=== PATIENT | female | born 1935 | race Caucasian/White ===

== ENCOUNTER 2018-05-23 20:26 | Inpatient (IN) ==
[2018-05-23] MEDS ORDERED: 0.9 % Sodium Chloride 500 ML IVC ONE (21:11)
[2018-05-23 21:40] LABS: Basophils # 0.1 K/mcL (0.0-0.2); Basophils % 0.3 %; Eosinophils # 0.1 K/mcL (0.0-0.6); Eosinophils % 0.3 %; Hemoglobin 10.7 g/dL (11.5-15.4); Immature Granulocytes % 13.4 % (0-4); Lymphocytes # 1.1 K/mcL (0.6-4.6); Lymphocytes % 3.8 %; Mean Corpuscular HGB Conc 31.5 g/dL (31.6-35.5); Mean Corpuscular Hemoglobin 26.9 pg (28.0-33.3); Mean Corpuscular Volume 85.4 fL (83.0-100.0); Mean Platelet Volume 9.8 fL (9.4-12.4); Monocytes # 0.9 K/mcL (0.0-1.3); Monocytes % 3.1 %; Neutrophils # 23.6 K/mcL (1.6-8.9); Platelet Count 215 K/mcL (140-400); Red Blood Count 3.98 M/mcL (3.82-4.97); Red Cell Distribution Width 17.6 % (11.5-14.5); Segmented Neutrophils % 79.1 %
[2018-05-23 21:47] LABS: Bilirubin,Urine Negative (Negative); Blood,Urine Large (Negative); Clarity,Urine Clear (Clear); Color,Urine Yellow (Yellow); Glucose,Urine (UA) Normal (Normal); Ketones,Urine Negative (Negative); Leukocyte Esterase,Urine Small (Negative); Nitrite,Urine Positive (Negative); PH,Urine 5.5 pH Units (5.0-8.0); Protein,Urine 100 mg/dL (Neg-Trace); Urobilinogen,Urine Normal (Normal)
[2018-05-23 21:54] LABS: WBC,Urine 50-100 per hpf (0-3)
[2018-05-23 22:23] LABS: Albumin 2.7 g/dL (3.5-5.7); Albumin/Globulin Ratio 0.8 (1.1-2.2); Bilirubin,Total 0.6 mg/dL (0.3-1.0); Calcium 9.4 mg/dL (8.6-10.3); Globulin 3.4 g/dL (2.4-3.5); Potassium 4.3 mEq/L (3.5-5.1); Total Protein 6.1 g/dL (6.4-8.9); Troponin I 0.07 ng/mL (< 0.04)
[2018-05-23 22:25] LABS: Platelet Estimate Normal (Normal)
[2018-05-23 22:26] LABS: Hypersegmented Neutrophils Present (Not Present)
--- NOTE | 2018-05-23 22:41 | Emergency Department Note ---
Disposition Clinical Impression: UTI (urinary tract infection), Dehydration, Decubitus ulcer, Leukocytosis Disposition: Admitted As Inpatient Condition: Fair General Adult HPI - General Chief complaint: ED General Medical Stated complaint: High WBC, Sacral decubitus, AMS, Time Seen by Provider: 05/23/18 20:26 Source: patient, EMS, other Limitations: altered mental status, physical limitation Nursing Notes Reviewed: Yes Vital Signs Reviewed: Yes - History of Present Illness HPI Narrative: Patient presents emerge from extended care facility with an elevated white blood cell count of a urinary tract infection and a large sacral decubitus ulcer. She is gradually getting worse so doctor Cash had her sent to the emergency department for evaluation. The patient is without complaint. Onset (ago): unknown (Long-standing) Pain Scale: 0 Consistency: constant Improves with: nothing Worsens with: nothing Associated symptoms: Reports: denies other symptoms - Related Data Home Medications Medication Instructions Recorded Confirmed Cholecalciferol (Vitamin D3) 10,000 unit PO QWEEK 04/13/15 05/24/18 [Vitamin D3] Clopidogrel [Plavix] 75 mg PO DAILY 04/13/15 05/23/18 Isosorbide MONOnitrate (24 HR) 30 mg PO DAILY 04/13/15 05/23/18 [Imdur] Levothyroxine Sodium [Tirosint] 25 mcg PO DAILY 04/13/15 05/23/18 Potassium Chloride [Klor-Con 10 meq PO BID 04/13/15 05/23/18 Sprinkle] Donepezil HCl [Aricept] 10 mg PO DAILY 05/23/16 05/23/18 Loratadine [Allergy Relief] 10 mg PO DAILY PRN 05/23/16 05/23/18 Nitroglycerin [Nitrostat] 0.4 mg SL AD PRN 05/23/16 05/23/18 Zinc Oxide [Skin Protectant] 1 appl TP 8XD 05/23/16 05/24/18 FA/Mv,Ca,Iron/Pollen/Herb#101 1 each PO 2XW 08/27/16 05/23/18 [Maximum Daily Green Tablet] Famotidine [Pepcid] 10 mg PO DAILY 08/27/16 05/23/18 Acetaminophen [Tylenol] 650 mg PO Q6HR PRN 05/24/18 05/24/18 Ascorbic Acid [Vitamin C] 500 mg PO DAILY 05/24/18 05/24/18 Bisacodyl [Dulcolax] 10 mg RC DAILY PRN 05/24/18 05/24/18 Cyanocobalamin (B-12) [Vitamin B12] 1,000 mcg PO DAILY 05/24/18 05/24/18 DULoxetine [Cymbalta] 20 mg PO DAILY 05/24/18 05/24/18 Ferrous Sulfate [Iron] 325 mg PO DAILY 05/24/18 05/24/18 Magnesium Hydroxide [Milk of 400 mg PO DAILY PRN 05/24/18 05/24/18 Magnesia] Melatonin 6 mg PO HS 05/24/18 05/24/18 OxyCODONE/APAP 5/325 [Percocet 0.5 each PO Q4HR PRN 05/24/18 05/24/18 5/325 MG] Oxybutynin Chloride [Ditropan Xl] 5 mg PO BID 05/24/18 05/24/18 Phenazopyridine [Pyridium] 100 mg PO TID PRN 05/24/18 05/24/18 Rosuvastatin Calcium [Crestor] 5 mg PO HS 05/24/18 05/24/18 Sennosides/Docusate Sodium [Colace 1 each PO BID 05/24/18 05/24/18 2-in-1 Tablet] Simethicone [Gas-X] 80 mg PO TID PRN 05/24/18 05/24/18 Previous Rx's Medication Instructions Recorded Bumetanide [Bumex] 1 mg PO DAILY #7 tablet 10/17/17 Allergies Allergy/AdvReac Type Severity Reaction Status Date / Time cephalexin [From Keflex] Allergy Rash Verified 05/23/18 23:39 Penicillins [PCN] Allergy Rash Verified 05/23/18 23:39 All systems ED: reviewed and negative except as stated. Review of Systems: As Per HPI Constitutional: Denies: fever, chills, weakness, weight change Eyes: Denies: eye pain, eye discharge, vision change ENT ED: Reports: as per HPI Cardiovascular: Denies: chest pain, palpitations, dyspnea on exertion, edema, syncope Respiratory: Denies: cough, dyspnea, wheezes, hemoptysis, stridor Gastrointestinal: Denies: abdominal pain, nausea, vomiting, diarrhea, constipation, hematemesis, melena, hematochezia Genitourinary: Denies: dysuria, frequency, hematuria, discharge Musculoskeletal: Reports: as per HPI Integumentary: Reports: as per HPI Neurological: Denies: headache, weakness, numbness, paresthesias, confusion, abnormal gait, vertigo Psychiatric: Denies: anxiety, depression, suicidal thoughts, homicidal thoughts, auditory hallucinations, visual hallucinations Endocrine: Denies: fatigue Hematological/Lymphatic: Denies: easy bleeding, easy bruising Allergic/Immunologic: Denies: facial swelling, urticaria Past Medical History - Past Medical History Attestation: Yes The following information was validated with the patient. Source: patient, nursing notes reviewed Medical history: Reports: arthritis, CHF, COPD, coronary artery disease, GERD, hyperlipidemia, hypertension, myocardial infarction, osteoporosis, thyroid disease Surgical history: Reports: cholecystectomy, other Psychiatric history: Reports: anxiety, other DECONTAMINATION TECHNICIAN history: Reports: no DECONTAMINATION TECHNICIAN history - Social History Smoking Status: Never smoker Smokeless Tobacco Status: No Alcohol use: Reports: none Drug use: Reports: none Physical Exam - General Limitations: altered mental status, physical limitation General appearance: alert, in no apparent distress - Head Head exam: atraumatic, normocephalic, normal inspection - Eye Eye exam: Present: normal appearance, PERRL, EOMI - ENT ENT exam: normal exam, normal oropharynx, mucous membranes moist - Neck Neck exam: Present: normal inspection, full ROM, trachea midline - Chest Chest inspection: Present: normal inspection, symmetric chest wall rise - Respiratory Respiratory exam: Present: normal lung sounds bilaterally - Cardiovascular Cardiovascular exam: Present: regular rate, normal rhythm, normal heart sounds - Abdominal Exam Abdominal exam: Present: soft, Non-Tender - Rectal Exam Country Director present during exam: Yes Rectal exam: Present: other (Large stage IV sacral decubitus noted) - Extremities Exam Extremities exam: Present: normal inspection, full ROM. Absent: tenderness, pedal edema - Back Exam Back exam: Present: normal inspection, full ROM. Absent: tenderness - Neurological Exam Neurological exam: Present: alert - Psychiatric Psychiatric exam: Present: normal affect, normal mood - Skin Skin exam: Present: warm, dry, intact Course Vital Signs Temperature 97.9 F 05/23/18 20:30 Pulse Rate 90 05/23/18 20:30 Respiratory Rate 16 05/23/18 20:30 Blood Pressure 95/52 05/23/18 20:30 O2 Sat by Pulse Oximetry 95 05/23/18 20:30 Temperature 97.6 F 05/24/18 02:16 Pulse Rate 68 05/24/18 02:16 Respiratory Rate 22 05/24/18 01:30 Blood Pressure 104/68 05/24/18 02:16 O2 Sat by Pulse Oximetry 94 05/24/18 02:16 Oxygen Delivery Oxygen Delivery Room Air Medical Decision Making - MDM Narrative Medical decision making narrative: I reviewed the patient's medication list I reviewed the patient's laboratory studies and findings with Dr. Castrejon who is graciously agreed to accept the patient has admission - Lab Data Lab results reviewed: Yes I reviewed the patient's lab results. Result diagrams: 05/23/18 21:31 05/23/18 21:31 Lab Results 05/23/18 05/23/18 05/23/18 Range/Units 21:31 21:31 21:31 WBC 29.8 H (4.3-11.1) K/mcL RBC 3.98 (3.82-4.97) M/mcL Hgb 10.7 L D (11.5-15.4) g/dL Hct 34.0 L (35.3-44.9) % MCV 85.4 (83.0-100.0) fL MCH 26.9 L (28.0-33.3) pg MCHC 31.5 L (31.6-35.5) g/dL RDW 17.6 H (11.5-14.5) % Plt Count 215 (140-400) K/mcL MPV 9.8 (9.4-12.4) fL Immature Gran % 13.4 H (0-4) % Seg Neutrophils % 79.1 % Lymphocytes % 3.8 % Monocytes % 3.1 % Eosinophils % 0.3 % Basophils % 0.3 % Neutrophils # 23.6 H (1.6-8.9) K/mcL Lymphocytes # 1.1 (0.6-4.6) K/mcL Monocytes # 0.9 (0.0-1.3) K/mcL Eosinophils # 0.1 (0.0-0.6) K/mcL Basophils # 0.1 (0.0-0.2) K/mcL Hypersegmented Neuts Present A (Not Present) Platelet Estimate Normal (Normal) Sodium 137 (136-145) mEq/L Potassium 4.3 (3.5-5.1) mEq/L Chloride 100 (98-107) mEq/L Carbon Dioxide 25 (23-29) mEq/L BUN 90 H (8-23) mg/dL Creatinine 1.52 H (0.60-1.20) mg/dL Est GFR ( Amer) 40 L (> 60) Est GFR (Non-Af Amer) 33 L (> 60) BUN/Creatinine Ratio 59 H (6-26) Glucose 123 H (70-105) mg/dL Calculated Osmolality 313 H (280-300) Lactic Acid (0.5-2.2) mmol/L Calcium 9.4 (8.6-10.3) mg/dL Total Bilirubin 0.6 (0.3-1.0) mg/dL AST 32 (13-39) Units/L ALT 19 (7-52) Units/L Alkaline Phosphatase 78 (34-104) Units/L Troponin I 0.07 H* (< 0.04) ng/mL Serum Total Protein 6.1 L (6.4-8.9) g/dL Albumin 2.7 L (3.5-5.7) g/dL Globulin 3.4 (2.4-3.5) g/dL Albumin/Globulin Ratio 0.8 L (1.1-2.2) Urine Color Yellow (Yellow) Urine Clarity Clear (Clear) Urine pH 5.5 (5.0-8.0) pH Units Ur Specific [place] 1.010 (1.010-1.025) Urine Protein 100 H (Neg-Trace) mg/dL Urine Glucose (UA) Normal (Normal) mg/dL Urine Ketones Negative (Negative) mg/dL Urine Blood Large H (Negative) Urine Nitrite Positive A (Negative) Urine Bilirubin Negative (Negative) Urine Urobilinogen Normal (Normal) mg/dL Ur Leukocyte Esterase Small H (Negative) Urine Microscopic RBC 5-15 H (0-3) per hpf Urine Microscopic WBC 50-100 H (0-3) per hpf Ur Culture Indicated? YES A (NO) 05/23/18 05/23/18 Range/Units 21:31 23:53 WBC (4.3-11.1) K/mcL RBC (3.82-4.97) M/mcL Hgb (11.5-15.4) g/dL Hct (35.3-44.9) % MCV (83.0-100.0) fL MCH (28.0-33.3) pg MCHC (31.6-35.5) g/dL RDW (11.5-14.5) % Plt Count (140-400) K/mcL MPV (9.4-12.4) fL Immature Gran % (0-4) % Seg Neutrophils % % Lymphocytes % % Monocytes % % Eosinophils % % Basophils % % Neutrophils # (1.6-8.9) K/mcL Lymphocytes # (0.6-4.6) K/mcL Monocytes # (0.0-1.3) K/mcL Eosinophils # (0.0-0.6) K/mcL Basophils # (0.0-0.2) K/mcL Hypersegmented Neuts (Not Present) Platelet Estimate (Normal) Sodium (136-145) mEq/L Potassium (3.5-5.1) mEq/L Chloride (98-107) mEq/L Carbon Dioxide (23-29) mEq/L BUN (8-23) mg/dL Creatinine (0.60-1.20) mg/dL Est GFR ( Amer) (> 60) Est GFR (Non-Af Amer) (> 60) BUN/Creatinine Ratio (6-26) Glucose (70-105) mg/dL Calculated Osmolality (280-300) Lactic Acid 2.4 H (0.5-2.2) mmol/L Calcium (8.6-10.3) mg/dL Total Bilirubin (0.3-1.0) mg/dL AST (13-39) Units/L ALT (7-52) Units/L Alkaline Phosphatase (34-104) Units/L Troponin I 0.07 H* (< 0.04) ng/mL Serum Total Protein (6.4-8.9) g/dL Albumin (3.5-5.7) g/dL Globulin (2.4-3.5) g/dL Albumin/Globulin Ratio (1.1-2.2) Urine Color (Yellow) Urine Clarity (Clear) Urine pH (5.0-8.0) pH Units Ur Specific [place] (1.010-1.025) Urine Protein (Neg-Trace) mg/dL Urine Glucose (UA) (Normal) mg/dL Urine Ketones (Negative) mg/dL Urine Blood (Negative) Urine Nitrite (Negative) Urine Bilirubin (Negative) Urine Urobilinogen (Normal) mg/dL Ur Leukocyte Esterase (Negative) Urine Microscopic RBC (0-3) per hpf Urine Microscopic WBC (0-3) per hpf Ur Culture Indicated? (NO) - Radiology Data Radiology results reviewed: Yes I reviewed the patient's radiology results. - EKG Data EKG #1 EKG attestation: Yes I reviewed and interpreted this EKG. EKG results narrative: EKG shows a normal sinus rhythm with rate of 86 bpm VT interval is 161 ms. Scientology 88 ms. QT and QTC intervals are 355 and 425 ms respectively. R axis of -6 degrees by my read
[2018-05-23] MEDS ORDERED: *HR* OxyCODONE/APAP 5/325 TABLET PO ONE (23:27)
[2018-05-24] MEDS ORDERED: Levofloxacin 500 MG/100 ML 500 MG/100 ML BAG IVPB ONE (01:10)
[2018-05-24] MEDS ORDERED: 0.9 % Sodium Chloride 1,000 ML IVC SCH (01:15)
[2018-05-24] MEDS ORDERED: Naloxone 0.4 MG/ML INJ IVP PRN (02:28)
[2018-05-24] MEDS ORDERED: Acetaminophen 325 MG TABLET PO PRN (02:28)
[2018-05-24] MEDS ORDERED: MOM Conc 10 ML UD.LIQ PO PRN (02:28)
[2018-05-24] MEDS ORDERED: Bisacodyl 10 MG RECTAL SUPPOSITORY RC PRN (02:28)
[2018-05-24] MEDS ORDERED: Nitroglycerin 0.4 MG TAB.SUBL SL PRN (02:28)
[2018-05-24] MEDS ORDERED: Loratadine 10 MG TABLET PO PRN (02:28)
[2018-05-24] MEDS ORDERED: Simethicone 80 MG TAB.CHEW PO PRN (02:28)
[2018-05-24] MEDS: 0.9 % Sodium Chloride 1,000 ML IVC SCH (03:56)
[2018-05-24] MEDS: Desitin (Zinc Oxide) 56 GM TUBE TP SCH ×8 (06:05→20:54)
[2018-05-24] MEDS: Levothyroxine 25 MCG TABLET PO SCH (06:05)
[2018-05-24] MEDS: *HR* OxyCODONE/APAP 5/325 TABLET PO PRN ×2 (06:41→17:19)
[2018-05-24] MEDS ORDERED: Bumetanide 1 MG TABLET PO SCH (09:00)
[2018-05-24] MEDS ORDERED: Multivit/Ca/Min/Fe/FA 1 TAB TABLET PO SCH (09:00)
[2018-05-24] MEDS ORDERED: Cholecalciferol (D-3) 1,000 UNIT TABLET PO SCH (09:00)
[2018-05-24] MEDS: Sennosides/Docusate Sodium TABLET PO SCH ×2 (09:24→20:55)
[2018-05-24] MEDS: Famotidine 20 MG TABLET PO SCH (09:24)
[2018-05-24] MEDS: Cyanocobalamin (B-12) 1,000 MCG TABLET PO SCH (09:25)
[2018-05-24] MEDS: Isosorbide MONOnitrate (24 HR) 30 MG TAB.ER.24H PO SCH (09:25)
[2018-05-24] MEDS: Ascorbic Acid 500 MG TABLET PO SCH (09:25)
[2018-05-24 11:55] LABS: Hematocrit 33.9 % (35.3-44.9); Hemoglobin 10.6 g/dL (11.5-15.4); Mean Corpuscular HGB Conc 31.3 g/dL (31.6-35.5); Mean Corpuscular Hemoglobin 26.4 pg (28.0-33.3); Mean Corpuscular Volume 84.5 fL (83.0-100.0); Mean Platelet Volume 9.7 fL (9.4-12.4); Platelet Count 183 K/mcL (140-400); Red Blood Count 4.01 M/mcL (3.82-4.97); Red Cell Distribution Width 17.5 % (11.5-14.5)
[2018-05-24 13:10] LABS: Hypersegmented Neutrophils Present (Not Present); Lymphocytes # 0.6 K/mcL (0.6-4.6); Monocytes # 0.6 K/mcL (0.0-1.3); Neutrophils # 28.3 K/mcL (1.6-8.9); Platelet Estimate Normal (Normal); Toxic Vacuolation Present (Not Present)
--- NOTE | 2018-05-24 15:18 | Internal Med History&Physical ---
Date of Encounter: 05/24/18 Time of Encounter: 14:45 Assessment and Plan (1) UTI (urinary tract infection) Current visit: Yes Status: Acute IV Levaquin has been ordered empirically in emergency room. Urine culture has been sent. Lactobacillus will be added. Qualifiers: Urinary tract infection type: site unspecified Hematuria presence: with hematuria Qualified Code(s): N39.0 - Urinary tract infection, site not specified; R31.9 - Hematuria, unspecified (2) Leukocytosis Current visit: Yes Status: Acute As above Qualifiers: Leukocytosis type: unspecified Qualified Code(s): D72.829 - Elevated white blood cell count, unspecified (3) Acute kidney injury Current visit: Yes Status: Acute IV fluids have been ordered. Bumex will be discontinued. Renal indices will be monitored. (4) Anemia Current visit: Yes Status: Acute Continue ferrous sulfate with ascorbic acid. Qualifiers: Anemia type: iron deficiency Iron deficiency anemia type: unspecified iron deficiency Qualified Code(s): D50.9 - Iron deficiency anemia, unspecified (5) HTN (hypertension) Current visit: No Status: Chronic Blood pressure borderline low. Bumex will be discontinued. Qualifiers: Hypertension type: essential hypertension Qualified Code(s): I10 - Essential (primary) hypertension (6) Decubitus ulcer Current visit: Yes Status: Acute Continue present wound care regimen. Qualifiers: Pressure injury location: unspecified location Pressure injury stage: stage 4 Qualified Code(s): L89.94 - Pressure ulcer of unspecified site, stage 4 (7) Dementia Current visit: Yes Status: Acute Stable. Continue Aricept Qualifiers: Dementia type: unspecified type Dementia behavioral disturbance: without behavioral disturbance Qualified Code(s): F03.90 - Unspecified dementia without behavioral disturbance (8) Hypothyroidism Current visit: No Status: Chronic Continue Synthroid. TSH was normal at 2.493 on 03/14/2018. Qualifiers: Hypothyroidism type: acquired Qualified Code(s): E03.9 - Hypothyroidism, unspecified Internal Medicine - H&P: HPI Chief complaint: Leukocytosis, acute kidney injury Admitted From: Emergency Dept Plans for Post Hospital Care: Home History of present illness: Ms. Beckford is a 83 year old female who was sent from a local to ER after m orning labs done at showed WBC significantly elevated at 45.9K and creatinine elevated at 1.78. She was evaluated in emergency room and was felt to have possible urosepsis with acute renal failure. She was admitted to [facility] floor for ongoing care needs. She has some dementia and does not recall the transfer to emergency room. She cannot offer any additional history. Past Med Surg Social Fam HX - Past Medical History Medical history: arthritis, CHF, COPD, coronary artery disease, GERD, hyperlipidemia, hypertension, myocardial infarction, osteoporosis, thyroid disease Additional medical history: Stage 4 decubitus ulcer Psychiatric history: anxiety, other - Past Surgical History Surgical History: cholecystectomy, other Additional surgical history: tubal - Social History Smoking Status: Never smoker Smokeless Tobacco Status: No Alcohol use: none Drug use: none Internal Medicine - H&P: Meds Cholecalciferol (Vitamin D3) [Vitamin D3] 10,000 unit PO QWEEK 04/13/15 [History] Clopidogrel [Plavix] 75 mg PO DAILY 04/13/15 [History] Isosorbide MONOnitrate (24 HR) [Imdur] 30 mg PO DAILY 04/13/15 [History] Levothyroxine Sodium [Tirosint] 25 mcg PO DAILY 04/13/15 [History] Potassium Chloride [Klor-Con Sprinkle] 10 meq PO BID 04/13/15 [History] Donepezil HCl [Aricept] 10 mg PO DAILY 05/23/16 [History] Loratadine [Allergy Relief] 10 mg PO DAILY PRN 05/23/16 [History] Nitroglycerin [Nitrostat] 0.4 mg SL AD PRN 05/23/16 [History] Zinc Oxide [Skin Protectant] 1 appl TP 8XD 05/23/16 [History] FA/Mv,Ca,Iron/Pollen/Herb#101 [Maximum Daily Green Tablet] 1 each PO 2XW 08/27/16 [History] Famotidine [Pepcid] 10 mg PO DAILY 08/27/16 [History] Bumetanide [Bumex] 1 mg PO DAILY #7 tablet 10/17/17 [Rx] Acetaminophen [Tylenol] 650 mg PO Q6HR PRN 05/24/18 [History] Ascorbic Acid [Vitamin C] 500 mg PO DAILY 05/24/18 [History] Bisacodyl [Dulcolax] 10 mg RC DAILY PRN 05/24/18 [History] Cyanocobalamin (B-12) [Vitamin B12] 1,000 mcg PO DAILY 05/24/18 [History] DULoxetine [Cymbalta] 20 mg PO DAILY 05/24/18 [History] Ferrous Sulfate [Iron] 325 mg PO DAILY 05/24/18 [History] Magnesium Hydroxide [Milk of Magnesia] 400 mg PO DAILY PRN 05/24/18 [History] Melatonin 6 mg PO HS 05/24/18 [History] OxyCODONE/APAP 5/325 [Percocet 5/325 MG] 0.5 each PO Q4HR PRN 05/24/18 [History] Oxybutynin Chloride [Ditropan Xl] 5 mg PO BID 05/24/18 [History] Phenazopyridine [Pyridium] 100 mg PO TID PRN 05/24/18 [History] Rosuvastatin Calcium [Crestor] 5 mg PO HS 05/24/18 [History] Sennosides/Docusate Sodium [Colace 2-in-1 Tablet] 1 each PO BID 05/24/18 [History] Simethicone [Gas-X] 80 mg PO TID PRN 05/24/18 [History] Allergy/AdvReac Type Severity Reaction Status Date / Time cephalexin [From Keflex] Allergy Rash Verified 05/23/18 23:39 Penicillins [PCN] Allergy Rash Verified 05/23/18 23:39 All Systems PM: A 10-system review of systems was performed and is negative for pertinent findings except as documented above in the HPI. Review of systems: Gen.: Her weight has been stable for several months at the Cardiovascular: She has history of hypertension but no known IN DVT or pulmonary embolus. 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 Echocardiogram 05/23/2016 showed LVEF 65%. The interventricular septum and posterior wall thickness measurements were elevated at 1.40 cm each. The E/A ratio was 0.9. There is also listed a diagnosis of CAD but she denies known IN or history of heart cath. Regadenoson EST 05/24/2016 showed perfusion and EKG imaging negati ve for ischemia. Respiratory: She is a lifelong nonsmoker has no known chronic lung disease GI: She has GERD. She has had cholecystectomy but denies disorders of her liver or exocrine pancreas : She has had occasional UTIs but denies other kidney or bladder disorders. Neurologic: She has a diagnosis of dementia but no history of large distribution strokes or seizures. Endocrine: She reports being diagnosed with DM 2 in 2018. Hemoglobin A1c was satisfactory at 5.6% on 03/14/2018. She has hypothyroidism and hyperlipidemia. Hematology/oncology: She has anemia with testing 05/07/2018 showing findings consistent with iron deficiency. There is no history of internal malignancies. Psychiatric: She has anxiety but no depression or other mental health issues. [place] skeletal: She has a large sacral wound and is followed by [facility] wound clinic personnel at . She denies gout. She has DJD. She had surgery in her left knee several years ago for unknown reason. - Constitutional Vitals: Temp Pulse Resp BP Pulse Ox 98.1 F 95 22 107/63 94 05/24/18 14:25 05/24/18 14:25 05/24/18 14:25 05/24/18 14:25 05/24/18 14:25 Exam: Gen.: She is a well-developed well-nourished female resting comfortably in bed who appears in no acute distress at present time HEENT: Head is atraumatic and normocephalic. Eyes: EOMI. There is no scleral icterus. Mouth: Mucosa is moist. Neck: Supple and nontender. There is no thyromegaly or adenopathy noted. Heart: Regular without murmurs gallops or ectopics Lungs: No wheezes or crackles are heard. Abdomen: Soft and nontender. No masses or guarding are noted. She has a large abdominal wall hernia that is easily reducible. Extremities: There is no cyanosis edema or clubbing noted. Dorsalis pedis and posttibial pulses are trace palpable bilaterally. Her feet are warm to touch. Neurologic: Mental status: She is talkative and a fair historian. She does remember some details of her history. Cranial nerves: Smile is symmetric. Forehead wrinkles bilaterally. Tongue protrudes midline. EOMI. Motor: There is no pronator drift. Cerebellar: Finger to nose is intact bilaterally. Skin: She has a large sacral wound estimated size of 12 cm diameter and 2 cm de pth. There is good granulation tissue without significant drainage present. She has a well-healed scar on her left leg from previous surgery. Skin is warm and dry otherwise. Internal Med - H&P Results - Labs CBC & Chem 7: 05/24/18 11:39 05/23/18 21:31 Labs: Short CBC 05/23/18 05/24/18 Range/Units 21:31 11:39 WBC 29.8 H 29.5 H (4.3-11.1) K/mcL Hgb 10.7 L D 10.6 L (11.5-15.4) g/dL Hct 34.0 L 33.9 L (35.3-44.9) % Plt Count 215 183 (140-400) K/mcL Neutrophils # 23.6 H 28.3 H (1.6-8.9) K/mcL BMP 05/23/18 21:31 Sodium 137 Potassium 4.3 Chloride 100 Carbon Dioxide 25 BUN 90 H Creatinine 1.52 H Glucose 123 H Calcium 9.4 Cardiac Enzymes 05/23/18 05/23/18 05/24/18 Range/Units 21:31 23:53 07:19 Troponin I 0.07 H* 0.07 H* 0.05 H* (< 0.04) ng/mL 05/24/18 Range/Units 11:39 Troponin I 0.05 H* (< 0.04) ng/mL Liver Function 05/23/18 Range/Units 21:31 Total Bilirubin 0.6 (0.3-1.0) mg/dL AST 32 (13-39) Units/L ALT 19 (7-52) Units/L Alkaline Phosphatase 78 (34-104) Units/L Albumin 2.7 L (3.5-5.7) g/dL Urine 05/23/18 Range/Units 21:31 Urine Color Yellow (Yellow) Urine Clarity Clear (Clear) Urine pH 5.5 (5.0-8.0) pH Units Ur Specific [place] 1.010 (1.010-1.025) Urine Protein 100 H (Neg-Trace) mg/dL Urine Glucose (UA) Normal (Normal) mg/dL - Impressions ITS Impressions Chest X-Ray 05/23/18 20:34 IMPRESSION: Shallow inspiratory effort with basilar atelectasis. Small right pleural effusions suspected. D/ / Nathan Argueta / Nathan Argueta Interpreting Provider: Nathan Argueta Head CT 05/23/18 20:35 IMPRESSION: No acute intracranial abnormality. D/ / Otf Zavala MD / Otf Zavala MD Interpreting Provider: Otf Zavala MD
[2018-05-24] MEDS ORDERED: Aminoglycoside Consult 1 EACH MC ONE (17:00)
[2018-05-24] MEDS: 0.45 % Sodium Chloride w/KCl 20 MEQ/1,000 ML MLS IVC SCH (17:20)
[2018-05-24 19:08] LABS: Acinetobacter baumannii by PCR Not Detected (Not Detect); Candida albicans by PCR Not Detected (Not Detect); Candida glabrata by PCR Not Detected (Not Detect); Candida krusei by PCR Not Detected (Not Detect); Candida parapsilosis by PCR Not Detected (Not Detect); Candida tropicalis by PCR Not Detected (Not Detect); Enterobacter cloacae Cmplx PCR Not Detected (Not Detect); Enterobacteriaceae by PCR DETECTED (Not Detect); Enterococcus by PCR Not Detected (Not Detect); Escherichia coli by PCR Not Detected (Not Detect); Klebsiella oxytoca by PCR Not Detected (Not Detect); Klebsiella pneumoniae by PCR Not Detected (Not Detect); Proteus by PCR DETECTED (Not Detect); Pseudomonas aeruginosa by PCR Not Detected (Not Detect); Serratia marcescens by PCR Not Detected (Not Detect); Staphylococcus aureus by PCR Not Detected (Not Detect); Staphylococcus by PCR Not Detected (Not Detect); Streptococcus agalactiae(B)PCR Not Detected (Not Detect); Streptococcus by PCR Not Detected (Not Detect); Streptococcus pneumoniae PCR Not Detected (Not Detect); Streptococcus pyogenes (A) PCR Not Detected (Not Detect); blaKPC Carbapenem-Resist Gene Not Detected (Not Detect); vanA/B Vancomycin-Resist Genes Not Detected (Not Detect)
--- NOTE | 2018-05-24 20:07 | Electrocardiograph Report ---
[place] [id number] Test Date: 2018-05-23 Pat Name: Roselia Beckford Department: EDP-14 Room: [facility] Gender: F Field Application Engineer: : 1935 Requested By: Joseph Call Order Number: [id number] Reading MD: Diane Shay Measurements Intervals Golden Rate: 86 P: 22 WI: 161 QRS: -6 QRSD: 88 T: -1 QT: 355 QTc: 425 Interpretive Statements Sinus rhythm Borderline T wave abnormalities Electronically Signed On 05-24-2018 20:05:17 EDT by Diane Shay
[2018-05-24] MEDS: Melatonin 3 MG TABLET PO SCH (20:55)
[2018-05-25] MEDS: Levothyroxine 25 MCG TABLET PO SCH (04:57)
[2018-05-25] MEDS: 0.45 % Sodium Chloride w/KCl 20 MEQ/1,000 ML MLS IVC SCH ×2 (04:57→14:53)
[2018-05-25 06:06] LABS: Basophils # 0.1 K/mcL (0.0-0.2); Basophils % 0.3 %; Eosinophils # 0.2 K/mcL (0.0-0.6); Hematocrit 31.2 % (35.3-44.9); Hemoglobin 9.8 g/dL (11.5-15.4); Immature Granulocytes % 0.3 % (0-4); Lymphocytes # 1.2 K/mcL (0.6-4.6); Lymphocytes % 5.3 %; Mean Corpuscular HGB Conc 31.4 g/dL (31.6-35.5); Mean Corpuscular Hemoglobin 26.6 pg (28.0-33.3); Mean Corpuscular Volume 84.6 fL (83.0-100.0); Mean Platelet Volume 10.3 fL (9.4-12.4); Monocytes # 0.6 K/mcL (0.0-1.3); Monocytes % 2.6 %; Neutrophils # 20.7 K/mcL (1.6-8.9); Platelet Count 156 K/mcL (140-400); Red Blood Count 3.69 M/mcL (3.82-4.97); Red Cell Distribution Width 17.6 % (11.5-14.5); Segmented Neutrophils % 90.5 %
[2018-05-25] MEDS: Desitin (Zinc Oxide) 56 GM TUBE TP SCH ×8 (06:22→20:42)
[2018-05-25 06:37] LABS: BUN/Creatinine Ratio 74 (6-26); Blood Urea Nitrogen 55 mg/dL (8-23); Calcium 8.7 mg/dL (8.6-10.3); Carbon Dioxide 24 mEq/L (23-29); Chloride 106 mEq/L (98-107); Glucose 82 mg/dL (70-105); Magnesium 2.1 mg/dL (1.6-2.6); Osmolality,Calculated 298 (280-300); Potassium 3.7 mEq/L (3.5-5.1); Sodium 137 mEq/L (136-145); eGFR For Non-African Americans > 60 (> 60)
[2018-05-25] MEDS: Isosorbide MONOnitrate (24 HR) 30 MG TAB.ER.24H PO SCH (08:24)
[2018-05-25] MEDS: Sennosides/Docusate Sodium TABLET PO SCH ×2 (08:24→20:42)
[2018-05-25] MEDS: Cyanocobalamin (B-12) 1,000 MCG TABLET PO SCH (08:25)
[2018-05-25] MEDS: Famotidine 20 MG TABLET PO SCH (08:25)
[2018-05-25] MEDS: Ascorbic Acid 500 MG TABLET PO SCH (08:25)
--- NOTE | 2018-05-25 09:21 | Internal Med Progress Note ---
Date of Encounter: 05/25/18 Time of Encounter: 09:10 - Assessment and plan (1) UTI (urinary tract infection) Current Visit: Yes Status: Acute Assessment and plan: May 25. Urine culture report is pending. Blood cultures (2/2) show Proteus. Continue IV Levaquin with lactobacillus. Qualifiers: Urinary tract infection type: site unspecified Hematuria presence: with hematuria Qualified Code(s): N39.0 - Urinary tract infection, site not specif ied; R31.9 - Hematuria, unspecified (2) Leukocytosis Current Visit: Yes Status: Acute Assessment and plan: May 25. WBC decreased to 22.9K. Continue IV Levaquin and vancomycin with lactobacillus. Qualifiers: Leukocytosis type: unspecified Qualified Code(s): D72.829 - Elevated white blood cell count, unspecified (3) Acute kidney injury Current Visit: Yes Status: Acute Assessment and plan: May 25. BUN and creatinine improved significantly to 55 and 0.74 respectively with estimated GFR greater than 60. Continue IV fluids and remain off Bumex. Recheck labs in a.m. (4) Anemia Current Visit: Yes Status: Acute Assessment and plan: May 25. Continue ferrous sulfate with ascorbic acid. Qualifiers: Anemia type: iron deficiency Iron deficiency anemia type: unspecified iron deficiency Qualified Code(s): D50.9 - Iron deficiency anemia, unspecified (5) HTN (hypertension) Current Visit: No Status: Chronic Assessment and plan: May 25. Blood pressure stable off medication. Continue to monitor. Qualifiers: Hypertension type: essential hypertension Qualified Code(s): I10 - Essential (primary) hypertension (6) Decubitus ulcer Current Visit: Yes Status: Acute Assessment and plan: May 25. Continue present interventions. Qualifiers: Pressure injury location: unspecified location Pressure injury stage: stage 4 Qualified Code(s): L89.94 - Pressure ulcer of unspecified site, stage 4 (7) Dementia Current Visit: Yes Status: Acute Assessment and plan: May 25. Continue Aricept Qualifiers: Dementia type: unspecified type Dementia behavioral disturbance: without behavioral disturbance Qualified Code(s): F03.90 - Unspecified dementia witho ut behavioral disturbance (8) Hypothyroidism Current Visit: No Status: Chronic Assessment and plan: May 25. Continue Synthroid. TSH was normal at 2.493 on 03/14/2018. Qualifiers: Hypothyroidism type: acquired Qualified Code(s): E03.9 - Hypothyroidism, unspecified - Subjective Interval history: May 25. She states her bowels are loose and she feels slightly nauseated. - Constitutional Vitals: Temp Pulse Resp BP Pulse Ox 98.9 F 69 22 118/43 95 05/25/18 06:21 05/25/18 06:21 05/25/18 06:21 05/25/18 06:21 05/25/18 06:21 Exam: She is resting comfortably in bed and appears in no acute distress. Her affect is overall cheerful. Extremities show no edema. I reviewed her medications and lab results. Internal Medicine: Result - Labs CBC & Chem 7: 05/25/18 05:16 05/25/18 05:16 Labs: Short CBC 05/24/18 05/25/18 Range/Units 11:39 05:16 WBC 29.5 H 22.9 H (4.3-11.1) K/mcL Hgb 10.6 L 9.8 L (11.5-15.4) g/dL Hct 33.9 L 31.2 L (35.3-44.9) % Plt Count 183 156 (140-400) K/mcL Neutrophils # 28.3 H 20.7 H (1.6-8.9) K/mcL BMP 05/25/18 05:16 Sodium 137 Potassium 3.7 Chloride 106 Carbon Dioxide 24 BUN 55 H Creatinine 0.74 Glucose 82 Calcium 8.7 Cardiac Enzymes 05/24/18 Range/Units 11:39 Troponin I 0.05 H* (< 0.04) ng/mL Consult Discharge Plan - Plan Referrals: NONE,PCP [Primary Care Provider] - 1 week
[2018-05-25] MEDS: Ondansetron ODT 4 MG TAB.RAPDIS SL PRN ×2 (10:18→20:41)
[2018-05-25] MEDS ORDERED: Acetaminophen 325 MG TABLET PO PRN (14:33)
[2018-05-25] MEDS: *HR* OxyCODONE/APAP 5/325 TABLET PO PRN ×2 (14:53→20:42)
[2018-05-25] MEDS: Melatonin 3 MG TABLET PO SCH (20:42)
[2018-05-26] MEDS: 0.9 % Sodium Chloride 1,000 ML IVC SCH (00:45)
[2018-05-26] MEDS: 0.45 % Sodium Chloride w/KCl 20 MEQ/1,000 ML MLS IVC SCH ×2 (00:58→12:31)
[2018-05-26] MEDS ORDERED: Levofloxacin 750 MG/150 ML 750 MG/150 ML BAG IVPB SCH (01:00)
[2018-05-26] MEDS: Desitin (Zinc Oxide) 56 GM TUBE TP SCH ×4 (06:09→12:32)
[2018-05-26] MEDS: Levothyroxine 25 MCG TABLET PO SCH (06:09)
[2018-05-26] MEDS: *HR* OxyCODONE/APAP 5/325 TABLET PO PRN ×2 (06:11→12:36)
[2018-05-26 06:27] LABS: Basophils % 0.2 %; Eosinophils # 0.4 K/mcL (0.0-0.6); Eosinophils % 2.6 %; Hematocrit 31.7 % (35.3-44.9); Hemoglobin 9.7 g/dL (11.5-15.4); Immature Granulocytes % 0.6 % (0-4); Lymphocytes # 1.3 K/mcL (0.6-4.6); Lymphocytes % 9.3 %; Mean Corpuscular HGB Conc 30.6 g/dL (31.6-35.5); Mean Corpuscular Hemoglobin 26.6 pg (28.0-33.3); Mean Corpuscular Volume 86.8 fL (83.0-100.0); Mean Platelet Volume 10.4 fL (9.4-12.4); Monocytes # 0.9 K/mcL (0.0-1.3); Monocytes % 6.9 %; Neutrophils # 10.9 K/mcL (1.6-8.9); Platelet Count 142 K/mcL (140-400); Red Blood Count 3.65 M/mcL (3.82-4.97); Red Cell Distribution Width 17.5 % (11.5-14.5); Segmented Neutrophils % 80.4 %
[2018-05-26 06:57] LABS: BUN/Creatinine Ratio 63 (6-26); Blood Urea Nitrogen 37 mg/dL (8-23); Calcium 8.6 mg/dL (8.6-10.3); Carbon Dioxide 25 mEq/L (23-29); Chloride 105 mEq/L (98-107); Glucose 85 mg/dL (70-105); Osmolality,Calculated 290 (280-300); Potassium 4.2 mEq/L (3.5-5.1); Sodium 136 mEq/L (136-145); eGFR For Non-African Americans > 60 (> 60)
[2018-05-26] MEDS: Cyanocobalamin (B-12) 1,000 MCG TABLET PO SCH (09:34)
[2018-05-26] MEDS: Ascorbic Acid 500 MG TABLET PO SCH (09:34)
[2018-05-26] MEDS: Sennosides/Docusate Sodium TABLET PO SCH (09:34)
[2018-05-26] MEDS: Isosorbide MONOnitrate (24 HR) 30 MG TAB.ER.24H PO SCH (09:34)
[2018-05-26 11:15] VITALS: BP 112/68
[2018-05-26] MEDS ORDERED: Nitroglycerin 0.4 MG TAB.SUBL SL PRN (13:15)
--- NOTE | 2018-05-26 14:17 | Discharge Summary ---
Orders not resulted at time of discharge: Pending orders 05/23/18 21:31 Culture,Blood [BC] Stat Culture,Urine [RM] Stat 05/26/18 16:00 Vancomycin,Trough Timed Date of Encounter: 05/26/18 Time of Encounter: 14:00 - Discharge Diagnosis (1) UTI (urinary tract infection) Priority: Primary Status: Acute Qualifiers: Urinary tract infection type: site unspecified Hematuria presence: with hematuria Qualified Code(s): N39.0 - Urinary tract infection, site not specified; R31.9 - Hematuria, unspecified (2) Leukocytosis Priority: Secondary Status: Acute Qualifiers: Leukocytosis type: unspecified Qualified Code(s): D72.829 - Elevated white blood cell count, unspecified (3) Acute kidney injury Priority: Secondary Status: Acute (4) Anemia Priority: Secondary Status: Acute Qualifiers: Anemia type: iron deficiency Iron deficiency anemia type: unspecified iron deficiency Qualified Code(s): D50.9 - Iron deficiency anemia, unspecified (5) HTN (hypertension) Priority: Secondary Status: Chronic Qualifiers: Hypertension type: essential hypertension Qualified Code(s): I10 - Essential (primary) hypertension (6) Decubitus ulcer Priority: Secondary Status: Acute Qualifiers: Pressure injury location: unspecified location Pressure injury stage: stage 4 Qualified Code(s): L89.94 - Pressure ulcer of unspecified site, stage 4 (7) Dementia Priority: Secondary Status: Chronic Qualifiers: Dementia type: unspecified type Dementia behavioral disturbance: without behavioral disturbance Qualified Code(s): F03.90 - Unspecified dementia without behavioral disturbance (8) Hypothyroidism Priority: Secondary Status: Chronic Qualifiers: Hypothyroidism type: acquired Qualified Code(s): E03.9 - Hypothyroidism, unspecified Hospital course: Ms. Beckford is a 83 year old female who was sent from a local SNF to ER after morning labs done at [facility] showed WBC significantly elevated at 45.9K and creatinine elevated at 1.78. She was evaluated in emergency room and was felt to have possible urosepsis with acute renal failure. She was admitted to [facility] floor for ongoing care needs. Initial orders were written by the emergency room physician. I saw her on May 24 and performed a history and physical. Urine and blood cultures were ordered. She was started empirically on IV Levaquin. Blood culture showed Proteus mirabilis. She will continue with IV antibiotics and probiotic for 10 additional days at discharge. Urine culture showed 2 gram-negative rods with final report pending at time of discharge. She responded clinically to treatment with WBC decreasing to 13.5 and left shift decreasing to 80.4 segs by day of discharge. IV fluids were given and Bumex was held. BUN and creatinine decreased to 37 and 0.59 respectively with estimated GFR greater than 60 by day of discharge. Bumex dose will be decreased at discharge to 0.5 mg every other day to avoid worsening azotemia. Supplemental potassium will be discontinued. BN peptide dewey to 382. She was asymptomatic. This will be monitored at the correction. Review of past labs show vitamin D level elevated at 121 on 01/31/2018. Supplemental vitamin D will be discontinued. Lipid profile 03/14/2018 showed cholesterol 112, triglycerides 75, HDL 43, LDL 54, and total/HDL ratio of 2.6. Crestor will be discontinued. She complained of soreness and dryness of her mouth on day of discharge. Oxybutynin will be discontinued. She will be given oral nystatin for 10 days at the [facility]. On May 26 she was stable for discharge back to the SNF. She will follow with me there. - Time Spent with Patient Total time spent providing and/or coordinating discharge services: - Discharge Medications Prescriptions: New Lactobacillus [Culturelle] 1 each PO BID 10 Days cap.sprink Levofloxacin 500 MG/100 ML [Levaquin Premix 500mg/100mL] 500 mg IVPB DAILY 10 Days bag Nystatin [Nystatin Suspension] 500,000 units PO QID 10 Days #120 ml Continue Zinc Oxide [Skin Protectant] 1 appl TP 8XD Nitroglycerin [Nitrostat] 0.4 mg SL AD PRN PRN Reason: Chest Pain Donepezil HCl [Aricept] 10 mg PO DAILY Clopidogrel [Plavix] 75 mg PO DAILY Levothyroxine Sodium [Tirosint] 25 mcg PO DAILY Isosorbide MONOnitrate (24 HR) [Imdur] 30 mg PO DAILY Famotidine [Pepcid] 10 mg PO DAILY FA/Mv,Ca,Iron/Pollen/Herb#101 [Maximum Daily Green Tablet] 1 each PO 2XW Ascorbic Acid [Vitamin C] 500 mg PO DAILY Magnesium Hydroxide [Milk of Magnesia] 400 mg PO DAILY PRN PRN Reason: Constipation Bisacodyl [Dulcolax] 10 mg RC DAILY PRN PRN Reason: Constipation Ferrous Sulfate [Iron] 325 mg PO DAILY DULoxetine [Cymbalta] 20 mg PO DAILY Melatonin 6 mg PO HS Cyanocobalamin (B-12) [Vitamin B12] 1,000 mcg PO DAILY Sennosides/Docusate Sodium [Colace 2-in-1 Tablet] 1 each PO BID Phenazopyridine [Pyridium] 100 mg PO TID PRN PRN Reason: Spasms Acetaminophen [Tylenol] 650 mg PO Q6HR PRN PRN Reason: Pain Simethicone [Gas-X] 80 mg PO TID PRN PRN Reason: Bloating OxyCODONE/APAP 5/325 [Percocet 5/325 MG] 0.5 each PO Q4HR PRN PRN Reason: Pain Changed Bumetanide [Bumex] 0.5 mg PO Q48H 365 Days tablet Discontinued Loratadine [Allergy Relief] 10 mg PO DAILY PRN PRN Reason: Congestion Potassium Chloride [Klor-Con Sprinkle] 10 meq PO BID Cholecalciferol (Vitamin D3) [Vitamin D3] 10,000 unit PO QWEEK Oxybutynin Chloride [Ditropan Xl] 5 mg PO BID Rosuvastatin Calcium [Crestor] 5 mg PO HS Home Medications: Clopidogrel [Plavix] 75 mg PO DAILY 04/13/15 [History] Isosorbide MONOnitrate (24 HR) [Imdur] 30 mg PO DAILY 04/13/15 [History] Levothyroxine Sodium [Tirosint] 25 mcg PO DAILY 04/13/15 [History] Donepezil HCl [Aricept] 10 mg PO DAILY 05/23/16 [History] Nitroglycerin [Nitrostat] 0.4 mg SL AD PRN 05/23/16 [History] Zinc Oxide [Skin Protectant] 1 appl TP 8XD 05/23/16 [History] FA/Mv,Ca,Iron/Pollen/Herb#101 [Maximum Daily Green Tablet] 1 each PO 2XW 08/27/16 [History] Famotidine [Pepcid] 10 mg PO DAILY 08/27/16 [History] Acetaminophen [Tylenol] 650 mg PO Q6HR PRN 05/24/18 [History] Ascorbic Acid [Vitamin C] 500 mg PO DAILY 05/24/18 [History] Bisacodyl [Dulcolax] 10 mg RC DAILY PRN 05/24/18 [History] Cyanocobalamin (B-12) [Vitamin B12] 1,000 mcg PO DAILY 05/24/18 [History] DULoxetine [Cymbalta] 20 mg PO DAILY 05/24/18 [History] Ferrous Sulfate [Iron] 325 mg PO DAILY 05/24/18 [History] Magnesium Hydroxide [Milk of Magnesia] 400 mg PO DAILY PRN 05/24/18 [History] Melatonin 6 mg PO HS 05/24/18 [History] OxyCODONE/APAP 5/325 [Percocet 5/325 MG] 0.5 each PO Q4HR PRN 05/24/18 [History] Phenazopyridine [Pyridium] 100 mg PO TID PRN 05/24/18 [History] Sennosides/Docusate Sodium [Colace 2-in-1 Tablet] 1 each PO BID 05/24/18 [History] Simethicone [Gas-X] 80 mg PO TID PRN 05/24/18 [History] Bumetanide [Bumex] 0.5 mg PO Q48H 365 Days tablet 05/26/18 [Rx] Lactobacillus [Culturelle] 1 each PO BID 10 Days cap.sprink 05/26/18 [Rx] Levofloxacin 500 MG/100 ML [Levaquin Premix 500mg/100mL] 500 mg IVPB DAILY 10 Days bag 05/26/18 [Rx] Nystatin [Nystatin Suspension] 500,000 units PO QID 10 Days #120 ml 05/26/18 [Rx] Allergies/Adverse Reactions: Allergy/AdvReac Type Severity Reaction Status Date / Time cephalexin [From Keflex] Allergy Rash Verified 05/23/18 23:39 Penicillins [PCN] Allergy Rash Verified 05/23/18 23:39 Date of admission: 05/24/18 15:12 Primary care physician: Kraig Castrejon M.D. - Constitutional Vitals: Temp Pulse Resp BP Pulse Ox 99.2 F 80 20 112/68 92 05/26/18 11:14 05/26/18 11:14 05/26/18 11:14 05/26/18 11:14 05/26/18 11:14 - Patient Status Disposition: Transfer SNF Condition: Fair - Discharge Instructions - Diet and Activity Activity: resume usual activities as tolerated Diet: advance to your usual diet
--- NOTE | 2018-05-26 14:28 | Physician Discharge Referral ---
ExtendedCare Referral Info Transfer To: [facility] Provider in Charge: Cash Provider in Charge after Transfer: PCP (Cash) - Diagnosis (1) UTI (urinary tract infection) Priority: Primary Status: Acute (2) Leukocytosis Priority: Secondary Status: Acute (3) Acute kidney injury Priority: Secondary Status: Acute (4) Anemia Priority: Secondary Status: Acute (5) HTN (hypertension) Priority: Secondary Status: Chronic (6) Decubitus ulcer Priority: Secondary Status: Acute (7) Dementia Priority: Secondary Status: Chronic (8) Hypothyroidism Priority: Secondary Status: Chronic Prognosis: Fair Aware of Diagnosis: Patient Aware of Prognosis: Patient - Transfer Medications Prescriptions: Lactobacillus [Culturelle] 1 each PO BID 10 Days cap.sprink Levofloxacin 500 MG/100 ML [Levaquin Premix 500mg/100mL] 500 mg IVPB DAILY 10 Days bag Nystatin [Nystatin Suspension] 500,000 units PO QID 10 Days #120 ml Home Medications: Clopidogrel [Plavix] 75 mg PO DAILY 04/13/15 [History] Isosorbide MONOnitrate (24 HR) [Imdur] 30 mg PO DAILY 04/13/15 [History] Levothyroxine Sodium [Tirosint] 25 mcg PO DAILY 04/13/15 [History] Donepezil HCl [Aricept] 10 mg PO DAILY 05/23/16 [History] Nitroglycerin [Nitrostat] 0.4 mg SL AD PRN 05/23/16 [History] Zinc Oxide [Skin Protectant] 1 appl TP 8XD 05/23/16 [History] FA/Mv,Ca,Iron/Pollen/Herb#101 [Maximum Daily Green Tablet] 1 each PO 2XW 2 06/20 [History] Famotidine [Pepcid] 10 mg PO DAILY 08/27/16 [History] Acetaminophen [Tylenol] 650 mg PO Q6HR PRN 05/24/18 [History] Ascorbic Acid [Vitamin C] 500 mg PO DAILY 05/24/18 [History] Bisacodyl [Dulcolax] 10 mg RC DAILY PRN 05/24/18 [History] Cyanocobalamin (B-12) [Vitamin B12] 1,000 mcg PO DAILY 05/24/18 [History] DULoxetine [Cymbalta] 20 mg PO DAILY 05/24/18 [History] Ferrous Sulfate [Iron] 325 mg PO DAILY 05/24/18 [History] Magnesium Hydroxide [Milk of Magnesia] 400 mg PO DAILY PRN 05/24/18 [History] Melatonin 6 mg PO HS 05/24/18 [History] OxyCODONE/APAP 5/325 [Percocet 5/325 MG] 0.5 each PO Q4HR PRN 05/24/18 [History] Phenazopyridine [Pyridium] 100 mg PO TID PRN 05/24/18 [History] Sennosides/Docusate Sodium [Colace 2-in-1 Tablet] 1 each PO BID 05/24/18 [History] Simethicone [Gas-X] 80 mg PO TID PRN 05/24/18 [History] Bumetanide [Bumex] 0.5 mg PO Q48H 365 Days tablet 05/26/18 [Rx] Lactobacillus [Culturelle] 1 each PO BID 10 Days cap.sprink 05/26/18 [Rx] Levofloxacin 500 MG/100 ML [Levaquin Premix 500mg/100mL] 500 mg IVPB DAILY 10 Days bag 05/26/18 [Rx] Nystatin [Nystatin Suspension] 500,000 units PO QID 10 Days #120 ml 05/26/18 [Rx] Allergies/Adverse Reactions: Allergy/AdvReac Type Severity Reaction Status Date / Time cephalexin [From Keflex] Allergy Rash Verified 05/23/18 23:39 Penicillins [PCN] Allergy Rash Verified 05/23/18 23:39 - Respiratory Orders Oxygen / L per min (Liters per minute by nasal cannula as needed to keep sats greater than 90%.) Smoking Cessation: Smoking cessation has been advised. For more information, call the [place] Tobacco Quit Line at 8-179-ASHW-NOW. - Lab Orders Lab Orders: Other (include drug levels w/frequency) (CBC with differential, BMP, BNP peptide in one week.) - Rehabiliation Orders Rehab Potential: Fair - Diet Orders Regular CERTIFICATION: I certify that the transfer of the above named patient to an Extended Care Facility is necessary for the continuing treatment of the diagnosis listed. The above information is true and accurate reflection of patient's current condition. Confidential - Redisclosure prohibited without a patient's written consent.
== END 2018-05-26 15:41 | DRG 689 ==
LOC: INPPIK 20:26 → EMEROOPIK 20:26 → INPPIK 05-24 01:50
PROVIDERS: ADMIT Internal Medicine; ATTEND Internal Medicine

== ENCOUNTER 2021-09-26 00:33 | Inpatient (IN) ==
[2021-09-26 01:27] LABS: Basophils # 0.1 K/mcL (0.0-0.2); Basophils % 0.8 %; Eosinophils # 0.3 K/mcL (0.0-0.6); Hematocrit 40.1 % (35.3-44.9); Hemoglobin 12.9 g/dL (11.5-15.4); Immature Granulocytes % 0.3 % (0-4); Lymphocytes # 2.5 K/mcL (0.6-4.6); Lymphocytes % 37.8 %; Mean Corpuscular HGB Conc 32.2 g/dL (31.6-35.5); Mean Corpuscular Hemoglobin 31.6 pg (28.0-33.3); Mean Corpuscular Volume 98.3 fL (83.0-100.0); Monocytes # 0.6 K/mcL (0.0-1.3); Neutrophils # 3.2 K/mcL (1.6-8.9); Platelet Count 194 K/mcL (140-400); Red Blood Count 4.08 M/mcL (3.82-4.97); Segmented Neutrophils % 48.1 %; White Blood Count 6.5 K/mcL (4.3-11.1)
[2021-09-26 01:36] LABS: INR 1.1; Prothrombin Time 11.8 Seconds (9.4-12.1)
[2021-09-26 01:47] LABS: Alanine Aminotransferase 9 Units/L (7-52); Albumin 3.7 g/dL (3.5-5.7); Albumin/Globulin Ratio 1.4 (1.1-2.2); Alkaline Phosphatase 83 Units/L (34-104); Aspartate Amino Transferase 15 Units/L (13-39); BUN/Creatinine Ratio 18 (6-26); Bilirubin,Total 0.6 mg/dL (0.3-1.0); Blood Urea Nitrogen 14 mg/dL (8-23); Calcium 9.2 mg/dL (8.6-10.3); Carbon Dioxide 31 mEq/L (23-29); Chloride 102 mEq/L (98-107); Globulin 2.6 g/dL (2.4-3.5); Glucose 114 mg/dL (70-105); Osmolality,Calculated 291 (280-300); Potassium 3.9 mEq/L (3.5-5.1); Sodium 140 mEq/L (136-145); Total Protein 6.3 g/dL (6.4-8.9); eGFR For African Americans > 60 (> 60); eGFR For Non-African Americans > 60 (> 60)
[2021-09-26 02:31] LABS: Bilirubin,Urine Negative (Negative); Blood,Urine Moderate (Negative); Clarity,Urine Slightly Cloudy (Clear); Color,Urine Yellow (Yellow); Glucose,Urine (UA) Normal (Normal); Ketones,Urine Negative (Negative); Leukocyte Esterase,Urine Small (Negative); Nitrite,Urine Positive (Negative); Protein,Urine Negative (Neg-Trace); Urobilinogen,Urine Normal (Normal)
[2021-09-26 02:40] LABS: Mucus,Urine Few per lpf (None-Few)
[2021-09-26 02:41] LABS: Bacteria,Urine Many per hpf (None-Few)
[2021-09-26 02:42] LABS: RBC,Urine 30-50 per hpf (0-3); Squamous Epithelial Cell,Urine Few per hpf (None-Few); WBC,Urine 15-30 per hpf (0-3)
[2021-09-26] MEDS ORDERED: Iopamidol - 370 500 ML MLS IVP ONE ×2 (03:33→06:08)
[2021-09-26] MEDS ORDERED: 0.9 % Sodium Chloride 1,000 ML IV ONE (04:21)
[2021-09-26] MEDS ORDERED: *HR* OxyCODONE/APAP 5/325 TABLET PO PRN (06:08)
[2021-09-26] MEDS ORDERED: Bisacodyl 10 MG RECTAL SUPPOSITORY RC PRN (06:08)
[2021-09-26] MEDS ORDERED: Simethicone 80 MG TAB.CHEW PO PRN (06:08)
[2021-09-26] MEDS ORDERED: Naloxone 0.4 MG/ML INJ IVP PRN (06:08)
[2021-09-26] MEDS ORDERED: Acetaminophen 325 MG TABLET PO PRN (06:08)
[2021-09-26] MEDS ORDERED: Nitroglycerin 0.4 MG TAB.SUBL SL PRN (06:08)
[2021-09-26] MEDS ORDERED: MOM Conc 10 ML UD.LIQ PO PRN (06:25)
[2021-09-26] MEDS: 0.9 % Sodium Chloride 1,000 ML IVC SCH ×2 (06:56→21:46)
[2021-09-26] MEDS: Levothyroxine 25 MCG TABLET PO SCH (06:56)
[2021-09-26] MEDS: Isosorbide MONOnitrate (24 HR) 30 MG TAB.ER.24H PO SCH (08:07)
[2021-09-26] MEDS: Sennosides/Docusate Sodium TABLET PO SCH ×2 (08:07→20:22)
[2021-09-26] MEDS: Ascorbic Acid 500 MG TABLET PO SCH (08:08)
[2021-09-26] MEDS: Cyanocobalamin (B-12) 1,000 MCG TABLET PO SCH (08:08)
[2021-09-26] MEDS: Famotidine 20 MG TABLET PO SCH (08:08)
[2021-09-26] MEDS: Ertapenem 1,000 MG in 0.9 % Sodium Chloride Mini Bag 100 ML IVPB SCH (08:11)
[2021-09-26] MEDS: Desitin (Zinc Oxide) Max 57 GM TUBE TP SCH ×7 (08:22→20:22)
[2021-09-26] MEDS ORDERED: Ertapenem 1,000 MG in 0.9 % Sodium Chloride Mini Bag 100 ML IVPB SCH (09:00)
[2021-09-26] MEDS: Melatonin 3 MG TABLET PO SCH (20:22)
[2021-09-27] MEDS: Levothyroxine 25 MCG TABLET PO SCH (06:29)
[2021-09-27] MEDS: Desitin (Zinc Oxide) Max 57 GM TUBE TP SCH ×8 (06:29→21:10)
[2021-09-27] MEDS: Ascorbic Acid 500 MG TABLET PO SCH (09:38)
[2021-09-27] MEDS: Famotidine 20 MG TABLET PO SCH (09:38)
[2021-09-27] MEDS: Isosorbide MONOnitrate (24 HR) 30 MG TAB.ER.24H PO SCH (09:38)
[2021-09-27] MEDS: Sennosides/Docusate Sodium TABLET PO SCH ×2 (09:39→21:10)
[2021-09-27] MEDS: Cyanocobalamin (B-12) 1,000 MCG TABLET PO SCH (09:39)
[2021-09-27] MEDS: Ertapenem 1,000 MG in 0.9 % Sodium Chloride Mini Bag 100 ML IVPB SCH (09:40)
[2021-09-27] MEDS ORDERED: Gadolinium Contrast Agent (WT Based) IV PRN (12:31)
[2021-09-27] MEDS: 0.9 % Sodium Chloride 1,000 ML IVC SCH (12:58)
[2021-09-27] MEDS ORDERED: Iopamidol - 370 500 ML MLS IVP ONE (14:04)
[2021-09-27] MEDS: Melatonin 3 MG TABLET PO SCH (21:09)
[2021-09-27] MEDS: *HR* Heparin 5,000 UNIT/ML VIAL SQ SCH (21:10)
[2021-09-28] MEDS: 0.9 % Sodium Chloride 1,000 ML IVC SCH ×2 (03:20→17:15)
[2021-09-28 05:54] LABS: Hematocrit 36.8 % (35.3-44.9); Hemoglobin 11.9 g/dL (11.5-15.4); Mean Corpuscular HGB Conc 32.3 g/dL (31.6-35.5); Mean Corpuscular Hemoglobin 31.6 pg (28.0-33.3); Mean Corpuscular Volume 97.9 fL (83.0-100.0); Mean Platelet Volume 8.8 fL (9.4-12.4); Platelet Count 185 K/mcL (140-400); Red Blood Count 3.76 M/mcL (3.82-4.97); Red Cell Distribution Width 13.2 % (11.5-14.5); White Blood Count 6.2 K/mcL (4.3-11.1)
[2021-09-28 06:19] LABS: BUN/Creatinine Ratio 22 (6-26); Blood Urea Nitrogen 13 mg/dL (8-23); Calcium 8.7 mg/dL (8.6-10.3); Carbon Dioxide 27 mEq/L (23-29); Chloride 109 mEq/L (98-107); Glucose 83 mg/dL (70-105); Osmolality,Calculated 295 (280-300); Potassium 3.7 mEq/L (3.5-5.1); Sodium 143 mEq/L (136-145); eGFR For African Americans > 60 (> 60); eGFR For Non-African Americans > 60 (> 60)
[2021-09-28] MEDS: *HR* Heparin 5,000 UNIT/ML VIAL SQ SCH ×3 (06:19→21:10)
[2021-09-28] MEDS: Levothyroxine 25 MCG TABLET PO SCH (06:19)
[2021-09-28] MEDS: Desitin (Zinc Oxide) Max 57 GM TUBE TP SCH ×8 (06:20→21:11)
[2021-09-28] MEDS: Famotidine 20 MG TABLET PO SCH (09:23)
[2021-09-28] MEDS: Aspirin Enteric Coated 81 MG Tablet PO SCH (09:24)
[2021-09-28] MEDS: Ascorbic Acid 500 MG TABLET PO SCH (09:24)
[2021-09-28] MEDS: Isosorbide MONOnitrate (24 HR) 30 MG TAB.ER.24H PO SCH (09:24)
[2021-09-28] MEDS: Cyanocobalamin (B-12) 1,000 MCG TABLET PO SCH (09:24)
[2021-09-28] MEDS: Sennosides/Docusate Sodium TABLET PO SCH ×2 (09:25→21:11)
[2021-09-28] MEDS: Ertapenem 1,000 MG in 0.9 % Sodium Chloride Mini Bag 100 ML IVPB SCH (09:25)
[2021-09-28] MEDS: Melatonin 3 MG TABLET PO SCH (21:10)
[2021-09-29] MEDS: 0.9 % Sodium Chloride 1,000 ML IVC SCH ×2 (06:37→20:00)
[2021-09-29] MEDS: Desitin (Zinc Oxide) Max 57 GM TUBE TP SCH ×8 (06:38→21:41)
[2021-09-29] MEDS: Levothyroxine 25 MCG TABLET PO SCH (06:38)
[2021-09-29] MEDS: *HR* Heparin 5,000 UNIT/ML VIAL SQ SCH ×3 (06:38→21:41)
[2021-09-29] MEDS: Cyanocobalamin (B-12) 1,000 MCG TABLET PO SCH (10:05)
[2021-09-29] MEDS: Famotidine 20 MG TABLET PO SCH (10:05)
[2021-09-29] MEDS: Ascorbic Acid 500 MG TABLET PO SCH (10:06)
[2021-09-29] MEDS: Aspirin Enteric Coated 81 MG Tablet PO SCH (10:06)
[2021-09-29] MEDS: Isosorbide MONOnitrate (24 HR) 30 MG TAB.ER.24H PO SCH (10:06)
[2021-09-29] MEDS: Ertapenem 1,000 MG in 0.9 % Sodium Chloride Mini Bag 100 ML IVPB SCH (10:07)
[2021-09-29] MEDS: Sennosides/Docusate Sodium TABLET PO SCH ×2 (10:30→20:56)
[2021-09-29] MEDS: Melatonin 3 MG TABLET PO SCH (20:56)
[2021-09-30] MEDS: Levothyroxine 25 MCG TABLET PO SCH (06:28)
[2021-09-30] MEDS: *HR* Heparin 5,000 UNIT/ML VIAL SQ SCH ×2 (06:28→16:27)
[2021-09-30] MEDS: Desitin (Zinc Oxide) Max 57 GM TUBE TP SCH ×8 (06:28→20:02)
[2021-09-30 08:11] LABS: Hematocrit 35.7 % (35.3-44.9); Hemoglobin 11.8 g/dL (11.5-15.4); Mean Corpuscular HGB Conc 33.1 g/dL (31.6-35.5); Mean Corpuscular Hemoglobin 31.7 pg (28.0-33.3); Mean Platelet Volume 9.1 fL (9.4-12.4); Platelet Count 187 K/mcL (140-400); Red Blood Count 3.72 M/mcL (3.82-4.97); Red Cell Distribution Width 13.1 % (11.5-14.5); White Blood Count 5.4 K/mcL (4.3-11.1)
[2021-09-30 08:32] LABS: BUN/Creatinine Ratio 19 (6-26); Blood Urea Nitrogen 10 mg/dL (8-23); Calcium 8.5 mg/dL (8.6-10.3); Carbon Dioxide 25 mEq/L (23-29); Chloride 111 mEq/L (98-107); Glucose 83 mg/dL (70-105); Osmolality,Calculated 296 (280-300); Potassium 3.3 mEq/L (3.5-5.1); Sodium 144 mEq/L (136-145); eGFR For African Americans > 60 (> 60); eGFR For Non-African Americans > 60 (> 60)
[2021-09-30] MEDS: Aspirin Enteric Coated 81 MG Tablet PO SCH (09:56)
[2021-09-30] MEDS: Famotidine 20 MG TABLET PO SCH (09:57)
[2021-09-30] MEDS: Cyanocobalamin (B-12) 1,000 MCG TABLET PO SCH (09:57)
[2021-09-30] MEDS: Ascorbic Acid 500 MG TABLET PO SCH (09:57)
[2021-09-30] MEDS: Sennosides/Docusate Sodium TABLET PO SCH ×2 (09:57→20:02)
[2021-09-30] MEDS: Isosorbide MONOnitrate (24 HR) 30 MG TAB.ER.24H PO SCH (09:57)
[2021-09-30] MEDS: Ertapenem 1,000 MG in 0.9 % Sodium Chloride Mini Bag 100 ML IVPB SCH (10:00)
[2021-09-30] MEDS ORDERED: Potassium Chloride Elixir 20 MEQ/15 ML UDC PO ONE (12:23)
[2021-09-30 15:08] LABS: Influenza A PCR Negative (Negative); Influenza B PCR Negative (Negative); Resp. Syncytial Virus PCR Negative (Negative); SARS-CoV-2 by PCR (In House) Negative (Negative)
[2021-09-30] MEDS: Melatonin 3 MG TABLET PO SCH (20:02)
[2021-09-30 20:16] VITALS: BP 154/78; PULSE 80; RESP 20; TEMP 98.7; O2SAT 95
== END 2021-09-30 22:15 | DRG 65 ==
LOC: EMEROOPIK 00:33 → INPPIK 00:33 → SUATTDRO 05:17 → INPPIK 05:50
PROVIDERS: ADMIT Internal Medicine; ATTEND Family Medicine